=== PATIENT | male | born 1955 | race Caucasian/White ===

== ENCOUNTER → 2016-09-30 | Outpatient (CLI) | payer OTHER | END | disposition home or self-care (01) | LOC: RESC 08-26 09:00 | DX: R06.02 Shortness of breath (principal) ==

== ENCOUNTER → 2016-10-16 | Outpatient (CLI) | payer OTHER ==
--- NOTE | 2016-10-28 09:27 | SS ---
ADMIT: 10/16/2016 RM/LOC: [facility] MR#: [id number] [address] [address] SUJATA PEREZ [address] [place] [address] Sleep Study SEX: M AGE: 61 : 1955 STUDY DATE: 10/16/2016 REFERRING PHYSICIAN: Mauricio Sweeney MD CLINICAL HISTORY: A 61-year-old male, body mass index of 30.5, 225 pounds, 72 inches tall, who has symptoms of daytime fatigue, snoring, undergoing evaluation with a home sleep study for obstructive sleep apnea. HOME SLEEP STUDY FINDINGS: RECORDING INFORMATION: Recording date 10/16/2016. Bedtime starts at 9:00 p.m., bedtime ends at 6:59 a.m. Time in bed, 9 hours 56 minutes. NOX-T3 home sleep study device was used. Good signal quality was obtained. BREATHING: Severe obstructive sleep apnea with apnea-hypopnea of 35.9. During the study, there were 147 apneas were noted, of which 103 were obstructive, 44 were central. There were 210 central apneas noted. OXYGEN SATURATION: Average oxygen saturation 91%. CARDIAC: Average pulse 79 beats per minute. BODY POSITION: The patient slept in the supine lateral position during the study. IMPRESSION AND PLAN: Severe predominantly obstructive sleep apnea with apnea- hypopnea index of 35.9. Recommend in-lab CPAP titration. Recommend losing weight. Recommend avoiding sedative or alcohol. Recommend refraining from driving if excessively sleepy. Recommend avoiding sleeping in supine position. Clinical correlation needed. Joe Solis MD/ ramses JOB #: [id number] CC: Bear Arcinieag, Attending Physician Toño Chester MD, Family Physician
== END | disposition home or self-care (01) ==
LOC: CARD 08:30
DX: G47.33 Obstructive sleep apnea (adult) (pediatric) (principal)

== ENCOUNTER → 2016-11-03 | Outpatient (CLI) | payer OTHER ==
--- NOTE | 2016-11-13 09:47 | SS ---
ADMIT: 11/03/2016 RM/LOC: [facility] MR#: [id number] [address] [address] SUJATA PEREZ [address] [place] [address] Sleep Study SEX: M AGE: 61 : 1955 STUDY DATE: 11/03/2016 REFERRING PHYSICIAN: Mauricio Sweeney MD CLINICAL HISTORY: A 61-year-old male, body mass index of 31.4, 72 inches tall, weight 231 pounds, who has known history of obstructive sleep apnea, in the sleep lab for CPAP titration. TECHNICAL DESCRIPTION: CPAP titration performed on night of 11/03/2016, attended by trained senior technologist. TITRATION FINDINGS: TITRATION DESCRIPTION: The patient was titrated from 5 cm CPAP to 15 cm of CPAP. AirFit F20 large mask was used as interface. SLEEP: Total time in bed is 485.5 minutes, total sleep time is 237.5 minutes, sleep efficiency 48.9%. 63.1% hours spent in stage II sleep, 8.7% hours spent in stage REM. BREATHING: The patient had ongoing significant obstructive hypopneas at lower CPAP pressures between 5 to 14 cm. At 15 cm, the patient was seen in REM sleep in lateral position with complete resolution of obstructive events. REM supine sleep was not seen at this pressure. OXYGEN SATURATION: Mean sleeping is 92%. CARDIAC: Average heart rate is 81 beats per minute. MOVEMENTS/POSITION: During the study, the patient slept in the supine lateral position with no significant leg movements. The patient did have significant wake time in the 1st half of the night. IMPRESSION AND PLAN: Recommend using CPAP at 15 cm with mask as mentioned above. The patient had excellent resolution of obstructive sleep apnea in REM sleep in lateral position at CPAP 15 cm. REM supine sleep was not seen at this ending pressure. Recommend losing weight. Recommend avoiding sedative or alcohol. Recommend refrain from driving if excessively sleepy. Recommend avoiding sleeping in supine position. Clinical correlation needed. CPAP compliance followup is recommended. Joe Solis MD/ ramses JOB #: [id number] CC: Toño Chester MD, Attending Physician Toño Chester MD, Family Physician
== END | disposition home or self-care (01) ==
LOC: RESC 19:37
DX: G47.30 Sleep apnea, unspecified (principal)

== ENCOUNTER → 2016-11-19 | Outpatient (CLI) | payer OTHER | END | disposition home or self-care (01) | LOC: RAD.S 08:42 → EDSTATUS 09:00 → RAD.S 09:00 | PROC: 3E0T3BZ Introduction of Anesthetic Agent into Peripheral Nerves and Plexi, Percutaneous Approach (ICD-10-PCS; principal; 2016-11-19) | DX: G44.009 Cluster headache syndrome, unspecified, not intractable (principal) ==

== ENCOUNTER 2016-11-20 07:20 | Emergency (ER) | payer OTHER ==
--- NOTE | 2016-11-22 11:08 | ER ---
ADMIT: 11/20/2016 RM/LOC: [facility] MR#: [id number] [address] [address] SUJATA PEREZ [address] [place] [address] Emergency Room Report SEX: M AGE: 61 : 1955 DATE: 11/20/2016 This 61-year-old white male coming in because his heart rate started to get fast. He had history of atrial fibrillation and that is what he was here. CBC, chemistry, and troponin all negative. Initial EKG was atrial fibrillation. We gave him 5 of Lopressor and that he converted spontaneously to that. This is chronic in nature. He needs follow up with Dr. Chester. Continue medications. CONDITION ON DISCHARGE: Good. Óscar Littlejohn MD/ ramses JOB #: [id number] CC: Óscar Littlejohn MD, Attending Physician Toño Chester MD, Family Physician
== END 2016-11-20 10:50 | disposition home or self-care (01) ==
LOC: ER 07:20
DX: I48.0 Paroxysmal atrial fibrillation (principal); I10 Essential (primary) hypertension; J44.9 Chronic obstructive pulmonary disease, unspecified; J45.909 Unspecified asthma, uncomplicated; Z86.73 Personal history of transient ischemic attack (TIA), and cerebral infarction without residual deficits; Z88.0 Allergy status to penicillin

== ENCOUNTER → 2016-11-25 | Outpatient (CLI) | payer OTHER | END | disposition home or self-care (01) | DX: G44.009 Cluster headache syndrome, unspecified, not intractable (principal) ==

== ENCOUNTER → 2016-11-26 | Outpatient (CLI) | payer OTHER | END | disposition home or self-care (01) | DX: R51 Headache (principal) ==